=== PATIENT | female | born 1990 | race Two or more races ===

== ENCOUNTER 2017-06-22 13:08 | Inpatient (IN) | payer OTHER ==
[2017-06-22] MEDS ORDERED: OXYTOCIN 30 UNITS/LR 500 ML IV (15:00)
[2017-06-22] MEDS ORDERED: CARBOPROST 250 MCG INJ IM (15:00)
[2017-06-22] MEDS ORDERED: BUTORPHANOL 2 MG INJ IV (15:00)
[2017-06-22] MEDS ORDERED: LIDOCAINE 1% (MPF) 30 ML INJ INJ (15:00)
[2017-06-22] MEDS ORDERED: METHYLERGONOVINE 0.2 MG INJ IM (15:00)
[2017-06-22] MEDS ORDERED: MISOPROSTOL 200 MCG TAB PR (15:00)
[2017-06-22] MEDS: LACTATED RINGER'S 1,000 ML IV (15:27)
[2017-06-22 16:09] LABS: ADD MAN DIFF? NO
[2017-06-22] MEDS: DINOPROSTONE 10 MG VAG SUPP VAG (16:09)
[2017-06-22] MEDS: AMPICILLIN 2 GM/NS (PMX) 100 ML IV (16:09)
[2017-06-22 16:12] LABS: BASOPHILS % 0.3 % (0.0-2.0); EOSINOPHILS # 0.1 10^3/ul (0.0-0.5); EOSINOPHILS % 0.9 % (0.0-7.0); HEMATOCRIT 36.3 % (37.0-47.0); HEMOGLOBIN 12.3 g/dl (12.0-16.0); LYMPHOCYTES # 1.5 10^3/ul (0.8-2.9); LYMPHOCYTES % 16.5 % (15.0-51.0); MEAN CORPUSCULAR HEMOGLOBIN 29.9 pg (29.0-33.0); MEAN CORPUSCULAR HGB CONC 33.9 g/dl (32.0-37.0); MEAN CORPUSCULAR VOLUME 88.1 fl (82.0-101.0); MEAN PLATELET VOLUME 11.7 fl (7.4-10.4); MONOCYTE # 0.4 10^3/ul (0.3-0.9); MONOCYTES % 4.2 % (0.0-11.0); NEUTROPHIL # 7.2 10^3/ul (1.6-7.5); NEUTROPHILS % 77.6 % (39.0-77.0); PLATELET COUNT 185 10^3/UL (140-415); RED BLOOD COUNT 4.12 10^6/ul (4.20-5.40); RED CELL DISTRIBUTION WIDTH 13.4 % (11.5-14.5)
[2017-06-22 16:12] LABS: WHITE BLOOD COUNT 9.2 10^3/ul (4.8-10.8)
[2017-06-22 16:37] LABS: INR 0.93; PROTIME 12.6 Sec (11.9-14.9)
[2017-06-22 16:38] LABS: PARTIAL THROMBOPLASTIN TIME 29.5 Sec (25.0-35.0)
[2017-06-22] MEDS: AMPICILLIN 1 GM/NS (PMX) 50 ML IV ×2 (20:06→23:55)
[2017-06-22 22:09] LABS: RAPID PLASMA REAGIN NONREACTIVE (NR)
[2017-06-23] MEDS: AMPICILLIN 1 GM/NS (PMX) 50 ML IV ×5 (04:27→20:52)
[2017-06-23] MEDS: DINOPROSTONE 10 MG VAG SUPP VAG (06:25)
[2017-06-23] MEDS: LACTATED RINGER'S 1,000 ML IV (15:25)
[2017-06-23] MEDS ORDERED: IBUPROFEN 600 MG TAB PO (20:00)
[2017-06-23] MEDS: OXYTOCIN 30 UNITS/LR 500 ML IV (21:33)
[2017-06-24] MEDS: AMPICILLIN 1 GM/NS (PMX) 50 ML IV ×4 (01:21→12:47)
[2017-06-24] MEDS: LACTATED RINGER'S 1,000 ML IV ×6 (02:49→22:47)
[2017-06-24] MEDS: BUTORPHANOL 2 MG INJ IV ×3 (03:38→08:58)
[2017-06-24] MEDS ORDERED: NALOXONE (0.4 MG/ML) INJ IV ×2 (12:30→17:00)
[2017-06-24] MEDS ORDERED: FENTAnyl 2MCG/ML-ROPIV 0.2% 100 ML BAG EPI (12:30)
[2017-06-24] MEDS ORDERED: EPHEDrine SULFATE 50 MG/5 ML SYG IV (12:30)
[2017-06-24] MEDS ORDERED: ONDANSETRON 4 MG INJ IV ×2 (12:30→17:00)
[2017-06-24] MEDS: CEFAZOLIN 2 GM/50 ML (PMX) 50 ML IVPB (15:30)
[2017-06-24] MEDS ORDERED: METOCLOPRAMIDE 10 MG INJ (15:31)
[2017-06-24] MEDS ORDERED: ONDANSETRON 4 MG INJ (15:31)
[2017-06-24] MEDS ORDERED: OXYTOCIN 10 UNIT INJ ×2 (15:31→16:19)
[2017-06-24] MEDS ORDERED: EPHEDrine SULFATE 50 MG/5 ML SYG (15:31)
[2017-06-24] MEDS ORDERED: morphine SULFATE/PF (10 MG/10 ML) INJ (15:31)
[2017-06-24] MEDS ORDERED: OXYTOCIN 30 UNITS/LR 500 ML IV ×2 (15:31→21:30)
[2017-06-24] MEDS ORDERED: LIDOCAINE 1.5%/EPI MPF (SDV) 30 ML VIAL (15:32)
[2017-06-24] MEDS ORDERED: MIDAZOLAM 1 MG/ML 2 ML INJ (16:04)
[2017-06-24] MEDS: morphine SULFATE/PF (10 MG/10 ML) INJ EPI (17:00)
[2017-06-24] MEDS ORDERED: morphine 2 MG INJ IV ×2 (17:00)
[2017-06-24] MEDS ORDERED: DIPHENHYDRAMINE 50 MG INJ IV (17:00)
[2017-06-24] MEDS: OXYTOCIN 30 UNITS/LR 500 ML IV ×2 (17:25→19:49)
[2017-06-24] MEDS: DIPHENHYDRAMINE 50 MG INJ IV (19:15)
[2017-06-24] MEDS: KETOROLAC 30 MG INJ IV (19:16)
[2017-06-24] MEDS ORDERED: CARBOPROST 250 MCG INJ IM (21:30)
[2017-06-24] MEDS ORDERED: METHYLERGONOVINE 0.2 MG INJ IM (21:30)
[2017-06-24] MEDS ORDERED: MISOPROSTOL 200 MCG TAB PR (21:30)
[2017-06-24] MEDS: CEFAZOLIN 1 GM/50 ML (PMX) 50 ML IVPB (23:26)
[2017-06-25] MEDS: OXYTOCIN 30 UNITS/LR 500 ML IV ×7 (01:16→21:16)
[2017-06-25] MEDS: LACTATED RINGER'S 1,000 ML IV ×2 (01:35→11:30)
[2017-06-25] MEDS: LANOLIN 7 GM TUBE TOP (01:35)
[2017-06-25] MEDS: KETOROLAC 30 MG INJ IV ×2 (05:10→12:25)
[2017-06-25] MEDS: SENNA/DOCUSATE NA (8.6MG/50MG) TAB PO ×3 (09:51→21:18)
[2017-06-25 11:34] LABS: ADD MAN DIFF? NO
[2017-06-25 11:38] LABS: WHITE BLOOD COUNT 10.2 10^3/ul (4.8-10.8)
[2017-06-25 11:38] LABS: BASOPHILS % 0.4 % (0.0-2.0); EOSINOPHILS % 0.4 % (0.0-7.0); HEMATOCRIT 27.1 % (37.0-47.0); HEMOGLOBIN 9.1 g/dl (12.0-16.0); LYMPHOCYTES # 1.5 10^3/ul (0.8-2.9); LYMPHOCYTES % 14.8 % (15.0-51.0); MEAN CORPUSCULAR HEMOGLOBIN 30.2 pg (29.0-33.0); MEAN CORPUSCULAR HGB CONC 33.6 g/dl (32.0-37.0); MEAN PLATELET VOLUME 11.7 fl (7.4-10.4); MONOCYTE # 0.5 10^3/ul (0.3-0.9); MONOCYTES % 5.3 % (0.0-11.0); NEUTROPHILS % 78.6 % (39.0-77.0); PLATELET COUNT 129 10^3/UL (140-415); RED BLOOD COUNT 3.01 10^6/ul (4.20-5.40)
[2017-06-25] MEDS: HYDROCODONE/APAP (5/325) TAB PO (12:43)
[2017-06-25] MEDS: IBUPROFEN 600 MG TAB PO ×2 (18:26→23:35)
[2017-06-25] MEDS: OXYCODONE/ACETAMINOPHEN (5/325) TAB PO (21:18)
[2017-06-26] MEDS: IBUPROFEN 600 MG TAB PO ×4 (05:36→23:59)
[2017-06-26] MEDS: SENNA/DOCUSATE NA (8.6MG/50MG) TAB PO ×2 (09:26→22:15)
[2017-06-26] MEDS: HYDROCODONE/APAP (5/325) TAB PO (10:21)
[2017-06-26] MEDS: LANOLIN 7 GM TUBE TOP (13:06)
[2017-06-26] MEDS: NA PHOSPHATE/BIPHOS 133 ML ENEMA PR (18:30)
[2017-06-26] MEDS: OXYCODONE/ACETAMINOPHEN (5/325) TAB PO (22:34)
[2017-06-27] MEDS: IBUPROFEN 600 MG TAB PO ×2 (05:44→11:28)
[2017-06-27] MEDS: DIPHTH/TET/ACEL PERTUSS (ADULT) 0.5 ML VIAL IM* (09:00)
[2017-06-27] MEDS: SENNA/DOCUSATE NA (8.6MG/50MG) TAB PO (09:48)
[2017-06-27] MEDS: OXYCODONE/ACETAMINOPHEN (5/325) TAB PO (11:28)
== END 2017-06-27 16:15 | disposition home or self-care (01) | DRG 766 ==
LOC: OBT 13:08 → L-D 06-24 15:29 → PP1 06-24 20:26 → OBT 14:56 → L-D 14:40
PROVIDERS: Obstetrics & Gynecology
PROC: 10D00Z1 Extraction of Products of Conception, Low, Open Approach (ICD-10-PCS; principal; 2017-06-24 16:00)
DX: O62.0 Primary inadequate contractions (principal); Z37.0 Single live birth; Z3A.40 40 weeks gestation of pregnancy
CPT/HCPCS: 62319; 76815; 76818; 85025; 85610; 85730; 86592; 86900; 86901; 94760; 99464

== ENCOUNTER 2017-11-16 06:22 | Day surgery (SDC) | payer OTHER ==
[2017-11-16] MEDS: SOD CHLORIDE 0.9% 1,000 ML IV (07:28)
[2017-11-16] MEDS ORDERED: ROCURONIUM 50 MG INJ (09:25)
[2017-11-16] MEDS ORDERED: PROPOFOL 20 ML (09:25)
[2017-11-16] MEDS ORDERED: GLYCOPYRROLATE 0.4 MG INJ ×2 (09:25→09:53)
[2017-11-16] MEDS ORDERED: CEFAZOLIN 1 GM INJ (09:25)
[2017-11-16] MEDS ORDERED: SUCCINYLCHOLINE CHLORIDE 100 MG/5 ML SYG IV (09:25)
[2017-11-16] MEDS ORDERED: ONDANSETRON 4 MG INJ (09:25)
[2017-11-16] MEDS ORDERED: METOCLOPRAMIDE 10 MG INJ (09:25)
[2017-11-16] MEDS ORDERED: MEPERIDINE /PF (100 MG/2 ML) AMPULE (09:25)
[2017-11-16] MEDS ORDERED: NEOSTIGMINE 3 MG/3 ML SYRINGE ×2 (09:25→09:53)
[2017-11-16] MEDS ORDERED: LIDOCAINE 2% (SDV) 5 ML INJ (09:25)
[2017-11-16] MEDS ORDERED: METOCLOPRAMIDE 10 MG INJ IV (09:30)
[2017-11-16] MEDS ORDERED: EPHEDrine SULFATE 50 MG/5 ML SYG IV (09:30)
[2017-11-16] MEDS ORDERED: LABETALOL HCL 20MG INJ IV (09:30)
[2017-11-16] MEDS ORDERED: FENTAnyl 50 MCG/ML VIAL IV ×2 (09:30)
[2017-11-16] MEDS ORDERED: DIPHENHYDRAMINE 50 MG INJ IV (09:30)
[2017-11-16] MEDS ORDERED: MEPERIDINE 25 MG INJ IV (09:30)
[2017-11-16] MEDS ORDERED: ONDANSETRON 4 MG INJ IV (09:30)
[2017-11-16] MEDS ORDERED: hydrALAzine 20 MG INJ IV (09:30)
[2017-11-16] MEDS ORDERED: MIDAZOLAM 1 MG/ML 2 ML INJ IV (09:30)
[2017-11-16] MEDS ORDERED: OXYCODONE/ACETAMINOPHEN (5/325) TAB PO (09:30)
[2017-11-16] MEDS ORDERED: HYDROmorphONE 1 MG/5 ML IV SYRINGE IV ×3 (09:30)
[2017-11-16] MEDS: BUPIVACAINE 0.25% (MPF) 30 ML INJ (09:55)
[2017-11-16] MEDS ORDERED: HYDROCODONE/APAP (5/325) TAB PO (10:30)
[2017-11-16] MEDS: CEFAZOLIN 2 GM/50 ML (PMX) 50 ML IVPB (10:34)
[2017-11-16] MEDS: FENTAnyl 50 MCG/ML VIAL IV (10:36)
[2017-11-16] MEDS: OXYCODONE/ACETAMINOPHEN (5/325) TAB PO (11:30)
== END 2017-11-16 12:11 | disposition home or self-care (01) ==
LOC: SDS 06:22
DX: K80.20 Calculus of gallbladder without cholecystitis without obstruction (principal)
CPT/HCPCS: 47562; 84703; 88304